=== PATIENT | male | born 2000 | race Hispanic/Latino ===

== ENCOUNTER → 2021-08-16 15:42 | Outpatient (CLI) | payer SELFPAY ==
--- NOTE | ~2021-08-16 | XR_ITS ---
EXAMINATION: XR lumbar spine 2-3V DATE: 08/16/2021 16:13 INDICATION: Low back pain TECHNIQUE: Anteroposterior and lateral views of the lumbar spine, and cone-down lateral view of the l umbosacral junction were obtained. COMPARISON: None. FINDINGS: There is no fracture, dislocation, or subluxation. The vertebral body heights, alignment, a nd intervertebral disc spaces are normal. The paravertebral soft tissues are unremarkable. The bowel gas pattern is normal. IMPRESSION: 1. Normal lumbar spine Reviewed, dictated and finalized at location F. IMPRESSION: 1. Normal lumbar spine
== END ==
PROVIDERS: PCP Chiropractor; Visit Provider Chiropractor
DX: M54.50 Low back pain, unspecified (principal)
CPT/HCPCS: 72100